=== PATIENT | male | born 1945 | race Caucasian/White ===

== ENCOUNTER 2017-01-03 15:11 | Emergency (ER) | payer MEDICARE | END 2017-01-03 19:44 | disposition home or self-care (01) | LOC: FER 15:11 | DX: T70.4XXA Effects of high-pressure fluids, initial encounter (principal); S61.213A Laceration without foreign body of left middle finger without damage to nail, initial encounter; E78.5 Hyperlipidemia, unspecified; F32.9 Major depressive disorder, single episode, unspecified; Z23 Encounter for immunization; Z79.899 Other long term (current) drug therapy; W22.8XXA Striking against or struck by other objects, initial encounter | CPT/HCPCS: 73140; 90471; 90715 ==